=== PATIENT | male | born 1960 | race Caucasian/White ===

== ENCOUNTER 2017-12-24 13:16 | Emergency (ER) | payer SELFPAY ==
[~2017-12-24] VITALS: Ht 203.2 cm; Wt 74.8 kg
[~2017-12-24 13:16] MED LIST: BACTRIM DS 8001 TA1 PO; HYDROCODONE BIT1 T11 PO; KEFLEX500 MG PO
[2017-12-24] MEDS ORDERED: POLYSPORIN OI28.3 GM T (13:24)
== END 2017-12-24 13:34 | disposition home or self-care (01) ==
LOC: ED 13:16
DX: L08.9 Local infection of the skin and subcutaneous tissue, unspecified (principal); F17.200 Nicotine dependence, unspecified, uncomplicated

== ENCOUNTER 2020-10-26 08:49 | Observation (INO) | payer SELFPAY ==
[~2020-10-26] VITALS: Ht 177.8 cm; Wt 70.3 kg
[~2020-10-26 08:49] MED LIST changes: +POLYSPORIN OI28.3 GM T
[2020-10-26 09:00] VITALS: BP 106/67
[2020-10-26 09:24] LABS: BASO % 0.7 % (0.0-1.0); EOS # 0.1 10*3/uL (0.0-0.4); EOS % 2.5 % (1.0-4.0); HEMATOCRIT 49.1 % (42.0-52.0); LYMPH # 1.3 10*3/uL (1.3-4.4); LYMPH % 28.3 % (27.0-41.0); MEAN CELL VOLUME 94.2 fl (80.0-94.0); MEAN CORPUSCULAR HGB 32.2 pg (27.0-31.0); MEAN CORPUSCULAR HGB CONC 34.2 g/dl (33.0-37.0); MEAN PLATELET VOLUME 9.2 fl (9.6-12.3); MONO # 0.5 10*3/uL (0.1-1.0); MONO % 12.2 % (3.0-9.0); NEUT # 2.5 10*3/uL (2.3-7.9); NEUT % 56.1 % (47.0-73.0); PLATELET COUNT AUTOMATED 169 10*3/uL (130-400); RED BLOOD COUNT 5.21 10*6/uL (4.50-5.90); RED CELL DISTRI WIDTH 12.7 % (0-14.5); WHITE BLOOD COUNT 4.4 10*3/uL (4.8-10.8)
[2020-10-26 09:35] LABS: ACT PARTIAL THROMBO TIME 27.1 SECONDS (20.0-32.1)
[2020-10-26 09:40] LABS: ALKALINE PHOSPHATASE 112 U/L (45-117); BUN 7 mg/dl (7-24); CHLORIDE 100 mmol/L (98-107); CREATININE 1.06 mg/dL (0.70-1.30); POTASSIUM 3.1 mmol/L (3.5-5.1); SGOT/AST 24 IU/L (3-35); SGPT/ALT 41 U/L (12-78); SODIUM 132 mmol/L (136-145); TOTAL PROTEIN 8.3 gm/dL (6.4-8.2)
[2020-10-26 09:59] LABS: TROPONIN I < 0.015 ng/ml (<0.045)
[2020-10-26 11:15] VITALS: BP 135/89
[2020-10-26 12:00] VITALS: BP 170/98
[2020-10-26 13:00] VITALS: BP 170/98
[2020-10-26] MEDS ORDERED: NORVASC5 MG PO (16:21)
== END 2020-10-26 16:41 | disposition home or self-care (01) ==
LOC: ED 08:49 → 4E 10:35 → EDHOLD 10:35 → 4E 10:58
PROVIDERS: Emergency Medicine; ADMIT Family Medicine; ATTEND Family Medicine
DX: R07.89 Other chest pain (principal); Z20.822 Contact with and (suspected) exposure to COVID-19; F10.230 Alcohol dependence with withdrawal, uncomplicated; R11.2 Nausea with vomiting, unspecified; R61 Generalized hyperhidrosis; R68.83 Chills (without fever); R05 Cough; R00.0 Tachycardia, unspecified; D75.89 Other specified diseases of blood and blood-forming organs; E80.6 Other disorders of bilirubin metabolism; E87.1 Hypo-osmolality and hyponatremia; E87.6 Hypokalemia; K21.9 Gastro-esophageal reflux disease without esophagitis; R73.9 Hyperglycemia, unspecified; F19.11 Other psychoactive substance abuse, in remission; F17.200 Nicotine dependence, unspecified, uncomplicated; Z79.899 Other long term (current) drug therapy

== ENCOUNTER → 2021-02-10 | Outpatient (CLI) | payer OTHER ==
[~2021-02-10] MED LIST changes: +NORVASC5 MG PO
== END | disposition home or self-care (01) ==
LOC: RAD 09:57
PROVIDERS: ATTEND Internal Medicine
DX: J98.11 Atelectasis (principal); M47.814 Spondylosis without myelopathy or radiculopathy, thoracic region; Z72.0 Tobacco use

== ENCOUNTER → 2022-11-10 | Outpatient (CLI) | payer OTHER | END | disposition home or self-care (01) | LOC: CT 11-02 09:00 | PROVIDERS: ATTEND Internal Medicine | DX: J43.8 Other emphysema (principal); I25.10 Atherosclerotic heart disease of native coronary artery without angina pectoris; R59.0 Localized enlarged lymph nodes; J84.10 Pulmonary fibrosis, unspecified; L92.8 Other granulomatous disorders of the skin and subcutaneous tissue; F17.210 Nicotine dependence, cigarettes, uncomplicated ==

== ENCOUNTER 2023-08-29 23:39 | Emergency (ER) | payer OTHER ==
[~2023-08-29] VITALS: Ht 177.8 cm; Wt 74.8 kg
[2023-08-29] MEDS ORDERED: METHOCARBAMOL 500 MG TAB PO ONE (23:50)
[2023-08-29] MEDS ORDERED: Ketorolac Tromethamine 60 MG/2 ML VIAL IM ONE (23:50)
[2023-08-29] MEDS ORDERED: NAPROXEN250 MG PO (23:54)
[2023-08-29] MEDS ORDERED: METHOCARBAMOL750 M1 PO (23:54)
== END 2023-08-30 00:05 | disposition home or self-care (01) ==
LOC: ED 23:39
DX: S39.012A Strain of muscle, fascia and tendon of lower back, initial encounter (principal); F10.10 Alcohol abuse, uncomplicated; F17.200 Nicotine dependence, unspecified, uncomplicated; F19.10 Other psychoactive substance abuse, uncomplicated; Z98.890 Other specified postprocedural states; X50.1XXA Overexertion from prolonged static or awkward postures, initial encounter; Y93.89 Activity, other specified; Y92.009 Unspecified place in unspecified non-institutional (private) residence as the place of occurrence of the external cause; Y99.8 Other external cause status

== ENCOUNTER 2024-03-21 06:17 | Emergency (ER) | payer OTHER ==
[~2024-03-21] VITALS: Ht 177.8 cm; Wt 73.9 kg
[~2024-03-21 06:17] MED LIST changes: +METHOCARBAMOL750 M1 PO; +NAPROXEN250 MG PO
[2024-03-21] MEDS ORDERED: Albuterol Sulf/Ipratropium 3 ML VIAL NEB ONE (06:40)
[2024-03-21] MEDS ORDERED: methylPREDNISolone sod succ 125 MG VIAL IV ONE (06:40)
[2024-03-21] MEDS ORDERED: MEMANTINE HCL5 MG PO (06:44)
[2024-03-21] MEDS ORDERED: VITAMIN D3 MA125 MC1 PO (06:44)
[2024-03-21] MEDS ORDERED: ZESTRIL20 MG PO (06:45)
[2024-03-21] MEDS ORDERED: CARDIZEM LA300 MG PO (06:45)
[2024-03-21] MEDS ORDERED: CETIRIZINE10 MG PO (06:45)
[2024-03-21] MEDS ORDERED: LISINOPRIL40 MG PO (06:46)
[2024-03-21] MEDS ORDERED: OMEPRAZOLE40 MG PO (06:46)
[2024-03-21] MEDS ORDERED: ATORVASTATIN CA10 M1 PO (06:47)
[2024-03-21] MEDS ORDERED: CARBIDOPA-LEVO1 EAC6 PO (06:47)
[2024-03-21] MEDS ORDERED: VENT7GM INH ×2 (06:48→08:22)
[2024-03-21 06:54] LABS: BASO # 0.1 10*3/uL (0.0-0.1); EOS # 0.7 10*3/uL (0.0-0.4); EOS % 9.7 % (1.0-4.0); HEMATOCRIT 41.5 % (42.0-52.0); LYMPH # 1.5 10*3/uL (1.3-4.4); LYMPH % 21.8 % (27.0-41.0); MEAN CELL VOLUME 90.2 fl (80.0-94.0); MEAN CORPUSCULAR HGB 31.5 pg (27.0-31.0); MEAN CORPUSCULAR HGB CONC 34.9 g/dl (33.0-37.0); MEAN PLATELET VOLUME 8.5 fl (9.6-12.3); MONO # 0.6 10*3/uL (0.1-1.0); MONO % 7.8 % (3.0-9.0); NEUT # 4.2 10*3/uL (2.3-7.9); NEUT % 59.4 % (47.0-73.0); PLATELET COUNT AUTOMATED 246 10*3/uL (130-400); RED CELL DISTRI WIDTH 12.7 % (0-14.5); WHITE BLOOD COUNT 7.1 10*3/uL (4.8-10.8)
[2024-03-21 07:42] LABS: ALKALINE PHOSPHATASE 106 U/L (46-116); CHLORIDE 96 mmol/L (98-107); SGPT/ALT 26 U/L (5-49); TOTAL PROTEIN 7.4 gm/dL (6.0-8.0)
[2024-03-21 07:43] LABS: BUN < 5 mg/dl (9-23)
[2024-03-21] MEDS ORDERED: PREDNISONE20 M1 PO (08:22)
[2024-03-21] MEDS ORDERED: AVPAK AZITHROM250 M1 PO (08:22)
[2024-03-22] MEDS ORDERED: NICORETTE2 MG PO (08:00)
[2024-03-22] MEDS ORDERED: VIBRAMYCIN100 MG PO (08:00)
[2024-03-22] MEDS ORDERED: TRIAMCINOLONE430 GM TD (08:00)
[2024-03-22] MEDS ORDERED: PERCOCET 5-3251 EACH PO (18:35)
== END 2024-03-21 08:47 | disposition home or self-care (01) ==
LOC: ED 06:17
PROVIDERS: Internal Medicine
DX: J44.1 Chronic obstructive pulmonary disease with (acute) exacerbation (principal); E87.1 Hypo-osmolality and hyponatremia; I10 Essential (primary) hypertension; F10.10 Alcohol abuse, uncomplicated; F17.290 Nicotine dependence, other tobacco product, uncomplicated; Z98.890 Other specified postprocedural states

== ENCOUNTER 2024-03-22 07:13 | Emergency (ER) | payer OTHER ==
[~2024-03-22] VITALS: Ht 177.8 cm; Wt 73.9 kg
[~2024-03-22 07:13] MED LIST changes: +ATORVASTATIN CA10 M1 PO; +AVPAK AZITHROM250 M1 PO; +CARBIDOPA-LEVO1 EAC6 PO; +CARDIZEM LA300 MG PO; +CETIRIZINE10 MG PO; +LISINOPRIL40 MG PO; +MEMANTINE HCL5 MG PO; +OMEPRAZOLE40 MG PO; +PREDNISONE20 M1 PO; +VENT7GM INH; +VITAMIN D3 MA125 MC1 PO; +ZESTRIL20 MG PO
[2024-03-22] MEDS ORDERED: NICORETTE2 MG PO (08:00)
[2024-03-22] MEDS ORDERED: VIBRAMYCIN100 MG PO (08:00)
[2024-03-22] MEDS ORDERED: TRIAMCINOLONE430 GM TD (08:00)
[2024-03-22] MEDS ORDERED: PERCOCET 5-3251 EACH PO (18:35)
== END 2024-03-22 08:12 | disposition home or self-care (01) ==
LOC: ED 07:13
DX: R21 Rash and other nonspecific skin eruption (principal); T36.3X5A Adverse effect of macrolides, initial encounter; I10 Essential (primary) hypertension; J44.9 Chronic obstructive pulmonary disease, unspecified; F10.10 Alcohol abuse, uncomplicated; F17.290 Nicotine dependence, other tobacco product, uncomplicated; Y92.89 Other specified places as the place of occurrence of the external cause

== ENCOUNTER 2024-03-22 18:04 | Emergency (ER) | payer OTHER ==
[~2024-03-22] VITALS: Ht 177.8 cm; Wt 73.9 kg
[~2024-03-22 18:04] MED LIST changes: +NICORETTE2 MG PO; +TRIAMCINOLONE430 GM TD; +VIBRAMYCIN100 MG PO
[2024-03-22] MEDS ORDERED: Acetaminophen/Oxycodone 5 MG/325 MG TABLET PO ONE (18:15)
[2024-03-22] MEDS ORDERED: PERCOCET 5-3251 EACH PO (18:35)
[2024-03-31] MEDS ORDERED: PREDNISONE10 MG PO (11:06)
[2024-03-31] MEDS ORDERED: LEVOFLOXACIN750 M2 PO (11:06)
== END 2024-03-22 18:48 | disposition home or self-care (01) ==
LOC: ED 18:04
DX: S92.511A Displaced fracture of proximal phalanx of right lesser toe(s), initial encounter for closed fracture (principal); I10 Essential (primary) hypertension; F10.10 Alcohol abuse, uncomplicated; F17.200 Nicotine dependence, unspecified, uncomplicated; Z98.890 Other specified postprocedural states; W22.8XXA Striking against or struck by other objects, initial encounter; Y93.89 Activity, other specified; Y92.89 Other specified places as the place of occurrence of the external cause; Y99.8 Other external cause status

== ENCOUNTER 2024-06-14 07:46 | Emergency (ER) | payer OTHER ==
[~2024-06-14] VITALS: Ht 177.8 cm; Wt 77.1 kg
[~2024-06-14 07:46] MED LIST changes: +LEVOFLOXACIN750 M2 PO; +PERCOCET 5-3251 EACH PO; +PREDNISONE10 MG PO
[2024-06-14] MEDS ORDERED: AZITHROMYCIN 250 MG TAB PO ONE (08:05)
[2024-06-14] MEDS ORDERED: methylPREDNISolone sod succ 125 MG VIAL IV ONE (08:05)
[2024-06-14] MEDS ORDERED: Albuterol Sulfate 2.5 MG/3 ML VIAL NEB ONE (08:05)
[2024-06-14] MEDS ORDERED: SODIUM CHLORIDE 0.9% 1,000 ML IV ONE (08:05)
[2024-06-14] MEDS ORDERED: MAGNESIUM SULFATE 50 ML IV ONE (08:05)
[2024-06-14 08:22] LABS: BASO # 0.1 10*3/uL (0.0-0.1); BASO % 1.2 % (0.0-1.0); EOS # 0.7 10*3/uL (0.0-0.4); EOS % 9.4 % (1.0-4.0); HEMATOCRIT 40.7 % (42.0-52.0); MEAN CELL VOLUME 92.9 fl (80.0-94.0); MEAN CORPUSCULAR HGB 31.3 pg (27.0-31.0); MEAN CORPUSCULAR HGB CONC 33.7 g/dl (33.0-37.0); MEAN PLATELET VOLUME 8.3 fl (9.6-12.3); MONO # 0.9 10*3/uL (0.1-1.0); MONO % 11.2 % (3.0-9.0); NEUT # 4.5 10*3/uL (2.3-7.9); NEUT % 58.6 % (47.0-73.0); PLATELET COUNT AUTOMATED 239 10*3/uL (130-400); RED BLOOD COUNT 4.38 10*6/uL (4.50-5.90); RED CELL DISTRI WIDTH 12.7 % (0-14.5); WHITE BLOOD COUNT 7.7 10*3/uL (4.8-10.8)
[2024-06-14 08:43] LABS: BUN 7 mg/dl (9-23); CHLORIDE 98 mmol/L (98-107); POTASSIUM 3.8 mmol/L (3.4-5.1)
[2024-06-14] MEDS ORDERED: BENZONATATE100 M1 PO (08:55)
== END 2024-06-14 09:41 | disposition home or self-care (01) ==
LOC: ED 07:46
PROVIDERS: Emergency Medicine
DX: J44.1 Chronic obstructive pulmonary disease with (acute) exacerbation (principal); K21.9 Gastro-esophageal reflux disease without esophagitis; F17.200 Nicotine dependence, unspecified, uncomplicated

== ENCOUNTER 2024-08-17 13:36 | Emergency (ER) | payer OTHER ==
[~2024-08-17] VITALS: Ht 406.4 cm; Wt 77.1 kg
[~2024-08-17 13:36] MED LIST changes: +BENZONATATE100 M1 PO; +HYDROCHLOROTH12.5 M3 PO; +OMNICEF300 MG PO; +SYMB160 INH
[2024-08-17] MEDS ORDERED: Acetaminophen/Hydrocodone 5 MG/325 MG TABLET PO ONE (15:40)
[2024-08-17] MEDS ORDERED: TRAMADOL HCL50 MG PO (16:04)
== END 2024-08-17 15:38 | disposition home or self-care (01) ==
LOC: ED 13:36
DX: S93.401A Sprain of unspecified ligament of right ankle, initial encounter (principal); J44.9 Chronic obstructive pulmonary disease, unspecified; I10 Essential (primary) hypertension; F10.10 Alcohol abuse, uncomplicated; F17.200 Nicotine dependence, unspecified, uncomplicated; F19.10 Other psychoactive substance abuse, uncomplicated; Z98.890 Other specified postprocedural states; W17.2XXA Fall into hole, initial encounter; Y93.89 Activity, other specified; Y92.89 Other specified places as the place of occurrence of the external cause; Y99.8 Other external cause status

== ENCOUNTER → 2025-03-13 | Outpatient (CLI) | payer OTHER ==
[~2025-03-13] MED LIST changes: +TRAMADOL HCL50 MG PO
== END | disposition home or self-care (01) ==
LOC: CT 01:31
PROVIDERS: ATTEND Internal Medicine
DX: R91.1 Solitary pulmonary nodule (principal); J43.9 Emphysema, unspecified; K76.0 Fatty (change of) liver, not elsewhere classified; I25.10 Atherosclerotic heart disease of native coronary artery without angina pectoris; M47.814 Spondylosis without myelopathy or radiculopathy, thoracic region; M25.571 Pain in right ankle and joints of right foot